=== PATIENT | male | born 1980 | race Caucasian/White ===

== ENCOUNTER 2018-08-17 10:17 | Outpatient (CLI) | payer BC, SELFPAY ==
[2018-08-17 11:00] LABS: Bilirubin Negative (Negative); Blood Negative (Negative); Clarity Clear; Glucose Negative (Negative); Ketones Negative (Negative); Leukocyte Esterase Negative (Negative); Nitrite Negative (Negative); Urobilinogen 0.2 EU/dL (Up TO 0.2); pH 6.5 (5-8)
== END 2018-08-17 10:37 ==
PROVIDERS: PCP General Practice; Visit Provider General Practice
DX: N39.0 Urinary tract infection, site not specified (principal)
CPT/HCPCS: 81003

== ENCOUNTER 2018-10-14 18:12 | Emergency (ER) | payer BC, SELFPAY ==
[2018-10-14 18:33] VITALS: BP 131/86; PULSE 82; RESP 16; TEMP 36; O2SAT 98
--- NOTE | 2018-10-14 19:04 | DI.RAD_ITS ---
SYMPTOMS/DIAGNOSIS: RT FLANK PAIN, RT SIDED PAIN WITH DEEP INSPIRATION PA CHEST: The heart is normal in size. The lungs are clear. The mediastinal structures and pleura appear intact. SUMMARY: Normal chest. SUPINE AND UPRIGHT ABDOMINAL SERIES: Supine and upright abdominal films were obtained. There is no evidence of an acute pneumonitis. There is no pleural effusion or pneumothorax. The heart is normal. The hilar structures, mediastinum and tracheal air column are apparently well maintained. There is no evidence of bowel obstruction. There is no evidence of free air. No evidence of nephrolithiasis is seen. The bony structures are unremarkable. The soft tissues are unremarkable. SUMMARY: No plain image evidence of nephrolithiasis. No acute abnormality seen.
[2018-10-14 19:26] LABS: Abs Immature Grans 0.01 k/cumm (0.0-0.09); Absolute Basophil Count 0.03 k/cumm (0.0-0.2); Absolute Eosinophil Count 0.16 k/cumm (0.0-0.7); Absolute Lymphocyte Count 1.33 k/cumm (1.2-3.4); Absolute Neutrophil Count 5.07 k/cumm (1.2-6.7); Basophils % 0.4; Eosinophils % 2.2; HGB 15.3 g/dL (13.5-17.5); Immature Grans % 0.1; Lymphocytes % 18.5; Mean Corp. HGB Concentration 35.6 g/dL (32.0-36.0); Mean Corpuscular Hemoglobin 29.7 pg (27.0-33.0); Mean Corpuscular Volume 83.5 fL (80-95); Mean Platelet Volume 9.6 fL (8.0-11.0); Monocytes % 8.3; Neutrophils % 70.5; Platelet Count 268 x1000/uL (130-400); RBC 5.15 m/cumm (4.50-6.00); RBC Distribution Width 13.7 % (11.8-14.1)
[2018-10-14 19:29] LABS: Bilirubin Negative (Negative); Blood Negative (Negative); Clarity Clear; Glucose Negative (Negative); Ketones Negative (Negative); Leukocyte Esterase Negative (Negative); Nitrite Negative (Negative); Urobilinogen 0.2 EU/dL (Up TO 0.2)
[2018-10-14] MEDS: Ketorolac 15 MG/ML VIAL IVP (19:29)
[2018-10-14] MEDS: Normal Saline 1,000 ML 1000 ML IV (19:29)
--- NOTE | 2018-10-14 19:32 | W.ED.GENAD ---
Discharge Plan Disposition Patient Disposition: HOME Condition: Stable Discharge Details Chief Complaint: FlankPain Clinical Impression: Acute thoracic myofascial strain, Chest wall pain Primary Care Provider: Giles Reza ED Provider: Quoc Escalante Home Meds and New Rx's Prescriptions: Continue acetaminophen [Mapap Extra Strength] 500 MG tablet 1 tab PO PRN PRNRF: 0 cyclobenzaprine 10 MG tablet 10 mg PO TID PRN (Reason: Muscle Spasm) Qty: 10 RF: 0 multivitamin [Multiple Vitamins] 1 EACH tablet 1 ea PO DAILY RF: 0 ibuprofen 200 MG tablet 600 mg PO DIRECTED PRNRF: 0 acetaminophen-codeine [Tylenol-Codeine #3] 1 EACH tablet 1 ea PO Q8H PRN PRN (Reason: Severe Pain) Qty: 7 RF: 0 hyoscyamine sulfate [Levsin/SL] 0.125 mg Tablet, Sublingual 0.125 mg PO PRNRF: 0 tadalafil [Cialis] 5 mg Tablet 5 mg PO PRNRF: 0 Discharge Instructions Instructions: Muscle Strain (ED), Chest Wall Pain (ED) Additional Instructions: Return immediately to the emergency department for any new or worsening symptoms. Due to injection he received in the emergency department do not take any further NSAIDs(Motrin, ibuprofen, Aleve, or aspirin) until tomorrow morning. You may use acetaminophen as needed for discomfort. Then beginning in the morning it is recommended that you take 400 mg ibuprofen and 500 mg of acetaminophen at the same time every 4 hours as needed for discomfort. If not improving over the next week follow-up with your primary care provider for reassessment as needed. Referrals: Giles Reza MD [Primary Care Provider] - (As needed for reassessment) Medical Decision Making Patient presenting to the emergency department for right flank pain. Patient states that he had but he felt was a sudden onset approximately an hour prior to arrival. Patient does state that he is very active and 2 days ago he was shoveling quite intensively but does not remember any specific injury or trauma. Patient does state a similar episode 2 months ago which they thought was a urinary tract infection and placed on antibiotics and resolved in a couple days. Patient otherwise denies any other symptoms. Physical exam shows some right thoracic muscular soft tissue tenderness along with tenderness to palpation of the right chest wall. Otherwise patient has no acute abdominal findings, no CVA tenderness, normal cardiac and respiratory examination. Plan to check labs along with urinalysis along with plain film imaging of chest and abdomen. I am highly suspicious more of a muscular strain so plan to give ketorolac and IV fluids pending results. Review of labs is completely unremarkable with no acute abnormalities and x-ray imaging shows no acute findings and no stones noted. Patient reassessed and continues to have discomfort. Patient given lidocaine patch but he states that he does not want any narcotic pain medication. Patient was prepared for discharge and staff combat information center officer noted chest rash to chest wall and neck. Reassessed patient and patient had no signs of anaphylaxis but there was slightly reddened area to patient's right chest wall and neck. Area not consistent with urticaria or diffuse allergic reaction but still plan to treat as if. Patient given oral Benadryl, prednisone, and ranitidine. Patient continued to state discomfort so given 10 mg of Flexeril. Patient continued to be observed pending discharge. Lidocaine patch was removed given that this was the last medication administered but of notation is surrounding area of lidocaine patch and underneath lidocaine patch shows no erythema. Rash improved so patient was discharged and encouraged to return for any new or worsening symptoms otherwise follow-up with primary care provider for reassessment. After discussion of diagnosis and plan of care patient has no further needs, questions, or concerns and states clear understanding to return to the emergency department for any worsening symptoms. HPI General Mode of arrival: ambulatory. Date/Time Provider Initiated Documentation: 10/14/18 18:49. Limitations to Documentation: no limitations. Information obtained by: patient and RN notes reviewed. History of Present Illness 38 year old M presents to the emergency department with the chief complaint of Right flank pain, described as moderate and similar to prior episodes, with intensity rated at 4. Quality is described as aching and sharp, and is localized to the back and right. Patient abdomen. Patient started experiencing this hour(s) (1) and it has been constant. No relieving factors improve symptom(s), No exacerbating factors reported . Patient notes no other symptoms.. Patient did receive the following treatments prior to arrival, NSAID Related Data Home Medications Medication Instructions Recorded Confirmed acetaminophen [Mapap Extra 1 tab PO PRN PRN 11/05/15 10/14/18 Strength] acetaminophen-codeine 1 ea PO Q8H PRN PRN #7 tablet 12/20/16 10/14/18 [Tylenol-Codeine #3] ibuprofen 600 mg PO DIRECTED PRN 12/20/16 10/14/18 multivitamin [Multiple Vitamins] 1 ea PO DAILY 12/20/16 10/14/18 cyclobenzaprine 10 mg PO TID PRN #10 tab 11/26/17 10/14/18 hyoscyamine sulfate [Levsin/SL] 0.125 mg PO PRN 10/14/18 tadalafil [Cialis] 5 mg PO PRN 10/14/18 Previous Rx's Medication Instructions Recorded acetaminophen-codeine 1 ea PO Q8H PRN PRN #7 tablet 12/20/16 [Tylenol-Codeine #3] cyclobenzaprine 10 mg PO TID PRN #10 tab 11/26/17 Allergies Allergy/AdvReac Type Severity Reaction Status Date / Time Penicillins Allergy Unverified 10/14/18 18:38 shellfish derived AdvReac Intermediate Unverified 10/14/18 18:38 General Stated Complaint: FlankPain NIKITA: 3 Review of Systems Constitutional Denies chills and Denies fever(s) Cardiovascular Denies chest pain Respiratory Denies cough, Denies hemoptysis and Reports pain on inspiration Gastrointestinal Denies abdominal pain, Denies diarrhea, Denies nausea and Denies vomiting Genitourinary Reports flank pain, Denies testicular mass and Denies testicular pain Musculoskeletal Reports back pain (mid to upper back ) Integumentary/Breasts Denies rash PFSH Social History Smoking/Tobacco Use Status: Never Exam Const General: cooperative, no acute distress and not ill appearing Orientation: alert, awake and oriented x3 HENMT Mouth: moist mucous membranes Chest Chest: normal inspection of the chest, no crepitus, localized rib tenderness with anteroposterior compression (Right 5 through 7), no masses and No rash Resp Effort & Inspection: normal respiratory effort, able to speak in complete sentences and no respiratory distress Auscultation: clear to auscultation bilaterally Cardio Rate: regular rate Rhythm: regular rhythm Heart Sounds: S1 normal and S2 normal Back/Spine/Pelvis Back: no CVA tenderness Cervical Spine: normal cervical lordosis and cervical ROM normal Thoracic/Lumbar Spine: thoracic and lumbar spine normal to inspection, No mass, paraspinal tenderness (Right mid-thoracic), No thoracic spinal tenderness and No lumbar spinal tenderness Skin General skin exam: no rashes or lesions noted Neuro General: alert, awake, oriented x3, moves all extremities and no focal motor deficits Sensory Exam: no sensory deficits noted Course Vital Signs Temperature 36 C L 10/14/18 18:33 Pulse 82 10/14/18 18:33 Respiratory Rate 16 10/14/18 18:33 Blood Pressure 131/86 10/14/18 18:33 Pulse Oximetry 98 10/14/18 18:33 Temperature 36 C L 10/14/18 18:33 Temperature Source Skin 10/14/18 18:33 Pulse 82 10/14/18 18:33 Respiratory Rate 16 10/14/18 18:33 Respiratory Effort Non-Labored 10/14/18 18:33 Blood Pressure 131/86 10/14/18 18:33 Blood Pressure Position Sitting 10/14/18 18:33 Pulse Oximetry 98 10/14/18 18:33 Oxygen Delivery Method Room Air 10/14/18 18:33 Oxygen Flow Rate 0 10/14/18 18:33 Pain Level 7 10/14/18 18:33 Lab/Test Results Lab/Test Results: Laboratory Tests Range/Units 10/14/18 10/14/18 10/14/18 19:20 19:20 19:23 WBC (4.4-10.8) k/cumm 7.20 RBC (4.50-6.00) m/cumm 5.15 Hgb (13.5-17.5) g/dL 15.3 Hct (40.0-50.0) % 43.0 MCV (80-95) fL 83.5 MCH (27.0-33.0) pg 29.7 MCHC (32.0-36.0) g/dL 35.6 RDW (11.8-14.1) % 13.7 Plt Count (130-400) x1000/uL 268 MPV (8.0-11.0) fL 9.6 Immature Gran % 0.1 Neutrophils % 70.5 Lymphocytes % 18.5 Monocytes % 8.3 Eosinophils % 2.2 Basophils % 0.4 Absolute Neutrophils (1.2-6.7) k/cumm 5.07 Absolute Lymphocytes (1.2-3.4) k/cumm 1.33 Absolute Monocytes (0.11-0.7) k/cumm 0.60 Absolute Eosinophils (0.0-0.7) k/cumm 0.16 Absolute Basophils (0.0-0.2) k/cumm 0.03 Sodium Cancelled Potassium Cancelled Chloride Cancelled Carbon Dioxide Cancelled Anion Gap Cancelled BUN Cancelled Creatinine Cancelled Estimated GFR/1.73 m2 Cancelled Glucose Cancelled Calcium Cancelled Magnesium Cancelled Total Bilirubin Cancelled AST Cancelled ALT Cancelled Alkaline Phosphatase Cancelled Total Protein Cancelled Albumin Cancelled Lipase Cancelled Urine Color (Yellow) Yellow Urine Clarity Clear Urine pH (5-8) 7.0 Ur Specific [place] (1.005-1.025) 1.010 Urine Protein (Negative) mg/dL Negative Urine Ketones (Negative) mg/dL Negative Urine Blood (Negative) Negative Urine Nitrite (Negative) Negative Urine Bilirubin (Negative) Negative Urine Urobilinogen (Up TO 0.2) EU/dL 0.2 Ur Leukocyte Esterase (Negative) Negative Urine Glucose (Negative) mg/dL Negative
[2018-10-14 19:57] LABS: ALT 28 U/L (12-78); AST 20 U/L (15-37); Albumin 4.3 g/dL (3.4-5.0); Alkaline Phosphatase 76 U/L (46-116); Anion Gap 7.4 mmol/L (3-11); BUN 12 mg/dL (7-18); Bilirubin, Total 0.6 mg/dL (0.2-1.0); CO2 28.6 mmol/L (21.0-32.0); CREATININE 0.87 mg/dL (0.70-1.30); Calcium 8.8 mg/dL (8.5-10.1); Chloride 102 mmol/L (98-107); Glucose 97 mg/dL (70-100); Lipase 83 U/L (73-393); Magnesium 2.1 mg/dL (1.8-2.4); Potassium 3.7 mmol/L (3.5-5.1); Sodium 138 mmol/L (136-145); Total Protein 7.6 g/dL (6.4-8.2)
--- NOTE | 2018-10-14 21:40 | DI.VRAD_ITS ---
EXAM: XR Abdomen 2 Views with XR Chest 1 View EXAM DATE/TIME: 10/14/2018 7:06 PM CLINICAL HISTORY: 38 years old, male; Pain; Other: R flank pain TECHNIQUE: XR of the abdomen (2 views) with XR chest (1 view). COMPARISON: No relevant prior studies available. FINDINGS: Lungs: Normal. No consolidation. Pleural space: Normal. No pneumothorax. Heart/Mediastinum: Normal. No cardiomegaly. Gastrointestinal tract: Moderate amount of stool in the right colon without pathologic dilation. No significant dilation of the small bowel. Intraperitoneal space: Normal. No free air. Organs: No stones project over the renal shadows. Bones/joints: Normal. No acute fracture. Soft tissues: Normal. IMPRESSION: No stones project over the renal shadows. Dictated and Authenticated by: Perri Perry MD. Ordering:SETH BOUCHER MD
[2018-10-14] MEDS: Lidocaine 5% Patch 1 PATCH TP (22:07)
[2018-10-14 22:48] VITALS: BP 133/76; PULSE 87; RESP 16; O2SAT 98
[2018-10-14 23:04] VITALS: PULSE 72; RESP 14
[2018-10-14] MEDS: Cyclobenzaprine 10 MG TAB PO (23:04)
[2018-10-14] MEDS: diphenhydrAMINE 25 MG CAP PO (23:04)
[2018-10-14] MEDS: predniSONE 20 MG TAB 60 MG PO (23:05)
[2018-10-14 23:10] VITALS: PULSE 77; RESP 17
[2018-10-14 23:20] VITALS: PULSE 72; RESP 13
[2018-10-14 23:44] VITALS: TEMP 37
== END 2018-10-14 23:46 | disposition home or self-care (01) ==
PROVIDERS: Emergency Provider Nurse Practitioner Family; PCP General Practice
DX: S29.012A Strain of muscle and tendon of back wall of thorax, initial encounter (principal); R07.81 Pleurodynia; X50.1XXA Overexertion from prolonged static or awkward postures, initial encounter
CPT/HCPCS: 36415; 80053; 83690; 96361; 96374; 99284; 74022; 81003; 83735; 85025; J1885; J7512

== ENCOUNTER 2019-02-08 16:30 | Emergency (ER) | payer BC, SELFPAY ==
[2019-02-08 16:40] VITALS: BP 115/64; PULSE 76; RESP 16; TEMP 36.7; O2SAT 97
--- NOTE | 2019-02-08 16:46 | W.ED.GENAD ---
Discharge Plan Disposition Patient Disposition: HOME Condition: Improving Discharge Details Chief Complaint: RespSymp Clinical Impression: Lumbago Reason For Visit: cough / sore throat / back pain Primary Care Provider: Giles Reza ED Provider: Ari Silva Home Meds and New Rx's Prescriptions: New methocarbamol 500 mg tablet 500 - 1,000 mg PO Q6H PRN (Reason: Back pain or spasm) Qty: 20 RF: 0 Continued acetaminophen [Mapap Extra Strength] 500 MG tablet 1 tab PO PRN PRNRF: 0 cetirizine 10 mg Tablet 10 mg PO DAILY RF: 0 multivitamin [Multiple Vitamins] 1 EACH tablet 1 ea PO DAILY RF: 0 ibuprofen 200 MG tablet 600 mg PO DIRECTED PRNRF: 0 hyoscyamine sulfate [Levsin/SL] 0.125 mg Tablet, Sublingual 0.125 mg PO DIRECTED PRNRF: 0 tadalafil [Cialis] 5 mg Tablet 5 mg PO DAILY RF: 0 Discharge Instructions Instructions: Low Back Strain (ED) Additional Instructions: Remove the Lidoderm patch in 12 hours time. May use ibuprofen 800 mg every 8 hours as a baseline anti-inflammatory. Methocarbamol as needed for pain and spasm. Follow-up with regular doctor for recheck. Return for any acute concerns Medical Decision Making 38-year-old male who presents for 2 complaints. One is had a slowly resolving 7 date URI with dry cough, congestion, sore throat. Is not any vomiting or diarrhea. After moving furniture 2 days ago he is developed left greater than right lumbar pain that is dull, achy, nonradiating and not associated with changes to urine or weakness or tingling Rapid strep test obtained and negative. I feel the patient has a resolving URI. He also has lumbar pain and spasm. We will Place Lidoderm patch and offer him methocarbamol 5 prescription. He understands homecare as well as return precautions. HPI General Mode of arrival: ambulatory. Date/Time Provider Initiated Documentation: 02/08/19 16:33. Limitations to Documentation: no limitations. History of Present Illness 38 year old M presents to the emergency department with the chief complaint of Cough and sore throat for 1 week, described as moderate, Quality is described as dull and constant, and is localized to the chest. Patient reports no radiation. Patient started experiencing this day(s) and it has been constant. No relieving factors improve symptom(s), No exacerbating factors reported . Patient notes denies shortness of breath. Patient did receive the following treatments prior to arrival, none Related Data Home Medications Medication Instructions Recorded Confirmed acetaminophen [Mapap Extra 1 tab PO PRN PRN 11/05/15 02/08/19 Strength] ibuprofen 600 mg PO DIRECTED PRN 12/20/16 02/08/19 multivitamin [Multiple Vitamins] 1 ea PO DAILY 12/20/16 02/08/19 hyoscyamine sulfate [Levsin/SL] 0.125 mg PO DIRECTED PRN 10/14/18 02/08/19 tadalafil [Cialis] 5 mg PO DAILY 10/14/18 02/08/19 cetirizine 10 mg PO DAILY 02/08/19 02/08/19 methocarbamol 500 - 1,000 mg PO Q6H PRN #20 tab 02/08/19 Previous Rx's Medication Instructions Recorded methocarbamol 500 - 1,000 mg PO Q6H PRN #20 tab 02/08/19 Allergies Allergy/AdvReac Type Severity Reaction Status Date / Time Penicillins Allergy Unverified 02/08/19 16:44 shellfish derived AdvReac Intermediate Unverified 02/08/19 16:44 General Stated Complaint: RespSymp NIKITA: 3 Review of Systems Review of Systems Dull left-sided back pain since moving furniture 2 days ago. 6 systems reviewed and otherwise negative [facility] Social History Smoking/Tobacco Use Status: Never Alcohol Intake: never Drug use: Never Substance use type: does not use Do you feel safe at home: Yes Do you feel safe in your relationship?: Yes Exam Narrative Exam Narrative: GEN: awake, alert, oriented 3. Pleasant, well groomed, interactive. HEAD: Normocephalic, atraumatic ENT: Mucous membranes moist, oropharynx erythematous without exudate or, External ear exam unremarkable EYES: PERRL, EOMI NECK: Full ROM, no TERRANCE, no menigismus CHEST/RESP: Nontender, clear to auscultation bilateral, no wheeze/rhonchi/rales CARDIOVASCULAR: RRR, no murmur, rub uli. 2+ Rad pulse bilateral ABDOMEN: Soft, nontender, no mass. +Bowel sounds. Back exam reveals left lumbar paraspinous spasm and tenderness to the SI joint. EXT: Full ROM, no edema, no rash. Motor 5 out of 5, sensation intact Neuro: Grossly normal neurologic exam, conversant, interactive. Psych: Speech fluent, thoughts congruent, affect normal Course Vital Signs Temperature 36.7 C 02/08/19 16:40 Pulse 76 02/08/19 16:40 Respiratory Rate 16 02/08/19 16:40 Blood Pressure 115/64 02/08/19 16:40 Pulse Oximetry 97 02/08/19 16:40 Temperature 36.7 C 02/08/19 16:40 Temperature Source Temporal Artery Scan 02/08/19 16:40 Pulse 76 02/08/19 16:40 Respiratory Rate 16 02/08/19 16:40 Respiratory Effort 02/08/19 16:43 Blood Pressure 115/64 02/08/19 16:40 Blood Pressure Position Sitting 02/08/19 16:40 Pulse Oximetry 97 02/08/19 16:40 Oxygen Delivery Method Room Air 02/08/19 16:40 Oxygen Flow Rate 0 02/08/19 16:40
--- NOTE | 2019-02-08 16:49 | ED.GENADUL_ITS ---
Discharge Plan Disposition Patient Disposition: HOME Condition: Improving Discharge Details Chief Complaint: RespSymp Clinical Impression: Lumbago Reason For Visit: cough / sore throat / back pain Primary Care Provider: Giles Reza ED Provider: Ari Silva Home Meds and New Rx's Prescriptions: New methocarbamol 500 mg tablet 500 - 1,000 mg PO Q6H PRN (Reason: Back pain or spasm) Qty: 20 RF: 0 Continued acetaminophen [Mapap Extra Strength] 500 MG tablet 1 tab PO PRN PRNRF: 0 cetirizine 10 mg Tablet 10 mg PO DAILY RF: 0 multivitamin [Multiple Vitamins] 1 EACH tablet 1 ea PO DAILY RF: 0 ibuprofen 200 MG tablet 600 mg PO DIRECTED PRNRF: 0 hyoscyamine sulfate [Levsin/SL] 0.125 mg Tablet, Sublingual 0.125 mg PO DIRECTED PRNRF: 0 tadalafil [Cialis] 5 mg Tablet 5 mg PO DAILY RF: 0 Discharge Instructions Instructions: Low Back Strain (ED) Additional Instructions: Remove the Lidoderm patch in 12 hours time. May use ibuprofen 800 mg every 8 hours as a baseline anti-inflammatory. Methocarbamol as needed for pain and spasm. Follow-up with regular doctor for recheck. Return for any acute concerns Medical Decision Making 38-year-old male who presents for 2 complaints. One is had a slowly resolving 7 date URI with dry cough, congestion, sore throat. Is not any vomiting or diarrhea. After moving furniture 2 days ago he is developed left greater than right lumbar pain that is dull, achy, nonradiating and not associated with changes to urine or weakness or tingling Rapid strep test obtained and negative. I feel the patient has a resolving URI. He also has lumbar pain and spasm. We will Place Lidoderm patch and offer him methocarbamol 5 prescription. He understands homecare as well as return precautions. HPI General Mode of arrival: ambulatory . Date/Time Provider Initiated Documentation: 02/08/19 16:33 . Limitations to Documentation: no limitations . History of Present Illness 38 year old M presents to the emergency department with the chief complaint of Cough and sore throat for 1 week, described as moderate, Quality is described as dull and constant, and is localized to the chest. Patient reports no radiation. Patient started experiencing this day(s) and it has been constant. No relieving factors improve symptom(s), No exacerbating factors reported . Patient notes denies shortness of breath. Patient did receive the following treatments prior to arrival, none Related Data Home Medications Medication Instructions Recorded Confirmed acetaminophen [Mapap Extra 1 tab PO PRN PRN 11/05/15 02/08/19 Strength] ibuprofen 600 mg PO DIRECTED PRN 12/20/16 02/08/19 multivitamin [Multiple Vitamins] 1 ea PO DAILY 12/20/16 02/08/19 hyoscyamine sulfate [Levsin/SL] 0.125 mg PO DIRECTED PRN 10/14/18 02/08/19 tadalafil [Cialis] 5 mg PO DAILY 10/14/18 02/08/19 cetirizine 10 mg PO DAILY 02/08/19 02/08/19 methocarbamol 500 - 1,000 mg PO Q6H PRN #20 tab 02/08/19 Previous Rx's Medication Instructions Recorded methocarbamol 500 - 1,000 mg PO Q6H PRN #20 tab 02/08/19 Allergies Allergy/AdvReac Type Severity Reaction Status Date / Time Penicillins Allergy Unverified 02/08/19 16:44 shellfish derived AdvReac Intermediate Unverified 02/08/19 16:44 General Stated Complaint: RespSymp NIKITA: 3 Review of Systems Review of Systems Dull left-sided back pain since moving furniture 2 days ago. 6 systems reviewed and otherwise negative [facility] Social History Smoking/Tobacco Use Status: Never Alcohol Intake: never Drug use: Never Substance use type: does not use Do you feel safe at home: Yes Do you feel safe in your relationship?: Yes Exam Narrative Exam Narrative: GEN: awake, alert, oriented 3. Pleasant, well groomed, interactive. HEAD: Normocephalic, atraumatic ENT: Mucous membranes moist, oropharynx erythematous without exudate or, External ear exam unremarkable EYES: PERRL, EOMI NECK: Full ROM, no TERRANCE, no menigismus CHEST/RESP: Nontender, clear to auscultation bilateral, no wheeze/rhonchi/rales CARDIOVASCULAR: RRR, no murmur, rub uli. 2+ Rad pulse bilateral ABDOMEN: Soft, nontender, no mass. +Bowel sounds. Back exam reveals left lumbar paraspinous spasm and tenderness to the SI joint. EXT: Full ROM, no edema, no rash. Motor 5 out of 5, sensation intact Neuro: Grossly normal neurologic exam, conversant, interactive. Psych: Speech fluent, thoughts congruent, affect normal Course Vital Signs Temperature 36.7 C 02/08/19 16:40 Pulse 76 02/08/19 16:40 Respiratory Rate 16 02/08/19 16:40 Blood Pressure 115/64 02/08/19 16:40 Pulse Oximetry 97 02/08/19 16:40 Temperature 36.7 C 02/08/19 16:40 Temperature Source Temporal Artery Scan 02/08/19 16:40 Pulse 76 02/08/19 16:40 Respiratory Rate 16 02/08/19 16:40 Respiratory Effort 02/08/19 16:43 Blood Pressure 115/64 02/08/19 16:40 Blood Pressure Position Sitting 02/08/19 16:40 Pulse Oximetry 97 02/08/19 16:40 Oxygen Delivery Method Room Air 02/08/19 16:40 Oxygen Flow Rate 0 02/08/19 16:40
[2019-02-08] MEDS: Lidocaine 5% Patch 1 PATCH TP (17:44)
[2019-02-08 17:48] VITALS: BP 113/72; PULSE 95; RESP 14; O2SAT 97
== END 2019-02-08 17:48 | disposition home or self-care (01) ==
PROVIDERS: Emergency Provider Emergency Medicine; PCP General Practice
DX: J02.9 Acute pharyngitis, unspecified; R05 Cough; M54.5 Low back pain; X50.0XXA Overexertion from strenuous movement or load, initial encounter
CPT/HCPCS: 87880; 99283; 87081

== ENCOUNTER 2019-08-27 09:59 | Outpatient (CLI) | payer BC, SELFPAY ==
[2019-08-27 10:33] LABS: HCT 43.3 % (40.0-50.0); HGB 15.5 g/dL (13.5-17.5)
[2019-08-27 11:17] LABS: Calculated LDL 154 mg/dL; Cholesterol 217 mg/dL (50-200); Glucose 110 mg/dL (70-100); HDL Cholesterol 47 mg/dL (40-60); Triglyceride 80 mg/dL (30-150)
[2019-08-30 08:38] LABS: PSA, Screening 1.4 ng/ml (0-2.5)
== END 2019-08-27 10:19 ==
PROVIDERS: PCP General Practice; Visit Provider General Practice
DX: Z00.00 Encounter for general adult medical examination without abnormal findings (principal); Z13.1 Encounter for screening for diabetes mellitus; Z13.0 Encounter for screening for diseases of the blood and blood-forming organs and certain disorders involving the immune mechanism; Z13.220 Encounter for screening for lipoid disorders; E29.1 Testicular hypofunction
CPT/HCPCS: 36415; 80061; 82947; 84153; 85014; 85018

== ENCOUNTER 2019-09-09 16:41 | Outpatient (REF) | payer BC, SELFPAY ==
[2019-09-09 19:04] LABS: Bilirubin Negative (Negative); Blood Negative (Negative); Clarity Clear (Clear); Glucose Negative (Negative); Ketones Negative (Negative); Leukocyte Esterase Negative (Negative); Nitrite Negative (Negative); Urobilinogen 0.2 EU/dL (Up TO 0.2)
== END 2019-09-09 17:01 ==
LOC: LBN 16:41
PROVIDERS: PCP General Practice; Visit Provider General Practice
DX: N39.0 Urinary tract infection, site not specified (principal)
CPT/HCPCS: 81003; 87086

== ENCOUNTER 2019-09-10 09:41 | Outpatient (CLI) | payer BC, SELFPAY ==
[2019-09-10 11:43] LABS: Glucose 97 mg/dL (70-100)
== END 2019-09-10 10:01 ==
PROVIDERS: PCP General Practice; Visit Provider General Practice
DX: Z00.00 Encounter for general adult medical examination without abnormal findings (principal); Z13.1 Encounter for screening for diabetes mellitus
CPT/HCPCS: 36415; 82947